=== PATIENT | female | born 1995 | race Caucasian/White ===

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

== ENCOUNTER 2017-03-18 17:17 | Emergency (ER) | payer BC ==
--- NOTE | 2017-03-18 18:33 | EDM.PDOC ---
<Angelia Abdi - Last Filed: 03/18/17 19:04> ED HPI GENERAL MEDICAL PROBLEM - General Chief Complaint: [employer] Problem Stated Complaint: BLEEDING. 2 MTHS PREG Time Seen by Provider: 03/18/17 18:00 Source of Information: Reports: Patient History Limitations: Reports: No Limitations - History of Present Illness INITIAL COMMENTS - FREE TEXT/NARRATIVE: Pt states that she was wiping after urinating and noticed brownish/red blood on the tissue. states that she has tampon in currenlty and unable to quantify bleeding amount. denies pain currently however states that she has n/v constantly due to . No other complaints. Onset: Today, Sudden - Related Data Allergies Allergy/AdvReac Type Severity Reaction Status Date / Time jewelry metal Allergy Rash Uncoded 03/18/17 17:24 scented deodorants Allergy Rash Uncoded 03/18/17 17:24 shabana dish soap AdvReac Rash Uncoded 03/18/17 17:24 Home Meds: Home Meds Pnv No.122/Iron/Folic Acid [ Multi Tablet] 1 each PO DAILY 03/18/17 [ History] Past Medical History Other Neuro History: scoliosis - Past Surgical History HEENT Surgical History: Reports: Tonsillectomy Other HEENT Surgeries/Procedures: unknown if adenoidectomy was also done Social & Family History - Family History Family Medical History: Noncontributory - Tobacco Use Smoking Status *Q: Never Smoker Second Hand Smoke Exposure: No - Caffeine Use Caffeine Use: Reports: None Other Caffeine Use: states rare caffeine use - Recreational Drug Use Recreational Drug Use: No ED ROS GENERAL - Review of Systems Review Of Systems: ROS reveals no pertinent complaints other than HPI. ED EXAM, RENAL/ - Physical Exam Exam: See Below Exam Limited By: No Limitations General Appearance: Alert, WD/WN, No Apparent Distress Respiratory/Chest: No Respiratory Distress, Lungs Clear, Normal Breath Sounds, No Accessory Muscle Use, Chest Non-Tender Cardiovascular: Normal Peripheral Pulses, Regular Rate, Rhythm, No Edema, No Gallop, No JVD, No Murmur, No Rub GI/Abdominal: Normal Bowel Sounds, Soft, Non-Tender, No Organomegaly, No Distention, No Abnormal Bruit, No Mass, Pelvis Stable Course - Vital Signs Last Recorded V/S: Last Vital Signs Temp 97.9 F 03/18/17 21:03 Pulse 99 03/18/17 21:03 Resp 17 03/18/17 21:03 BP 129/87 03/18/17 21:03 Pulse Ox 100 03/18/17 21:03 - Orders/Labs/Meds Labs: Laboratory Tests 03/18/17 03/18/17 03/18/17 Range/Units 17:39 17:39 17:39 WBC 10.0 (5.0-10.0) 10^3/uL RBC 4.13 L (4.2-5.4) 10^6/uL Hgb 12.4 (12.0-16.0) g/dL Hct 36.8 L (37.0-47.0) % MCV 89.1 (80-100) fL MCH 30.0 (27.0-34.0) pg MCHC 33.7 (33.0-35.0) g/dL Plt Count 243 (150-450) 10^3/uL Neut % (Auto) 67.6 (42.2-75.2) % Lymph % (Auto) 23.8 (20.5-50.1) % [place] % (Auto) 7.3 (2-8) % Eos % (Auto) 1.1 (1.0-3.0) % Baso % (Auto) 0.2 (0.0-1.0) % HCG, Quant > 1370 H (0-25) mIU/ml Beta HCG, Quant 884233 mIU/ml Urine Color (YELLOW) Urine Appearance (CLEAR) Urine pH (5.0-9.0) Ur Specific [place] (1.005-1.030) Urine Protein (NEGATIVE) Urine Glucose (UA) (NEGATIVE) Urine Ketones (NEGATIVE) Urine Occult Blood (NEGATIVE) Urine Nitrite (NEGATIVE) Urine Bilirubin (NEGATIVE) Urine Urobilinogen (0.2-1.0) mg/dL Ur Leukocyte Esterase (NEGATIVE) Urine RBC /HPF Urine WBC (0-5/HPF) /HPF Ur Epithelial Cells /HPF Urine Bacteria (0-FEW/HPF) /HPF Urine Mucus /LPF Blood Type A POSITIVE Gel Antibody Screen Negative 03/18/17 Range/Units 18:19 WBC (5.0-10.0) 10^3/uL RBC (4.2-5.4) 10^6/uL Hgb (12.0-16.0) g/dL Hct (37.0-47.0) % MCV (80-100) fL MCH (27.0-34.0) pg MCHC (33.0-35.0) g/dL Plt Count (150-450) 10^3/uL Neut % (Auto) (42.2-75.2) % Lymph % (Auto) (20.5-50.1) % [place] % (Auto) (2-8) % Eos % (Auto) (1.0-3.0) % Baso % (Auto) (0.0-1.0) % HCG, Quant (0-25) mIU/ml Beta HCG, Quant mIU/ml Urine Color Yellow (YELLOW) Urine Appearance Slightly cloudy (CLEAR) Urine pH 5.5 (5.0-9.0) Ur Specific [place] 1.015 (1.005-1.030) Urine Protein Negative (NEGATIVE) Urine Glucose (UA) Negative (NEGATIVE) Urine Ketones Negative (NEGATIVE) Urine Occult Blood Small H (NEGATIVE) Urine Nitrite Negative (NEGATIVE) Urine Bilirubin Negative (NEGATIVE) Urine Urobilinogen 0.2 (0.2-1.0) mg/dL Ur Leukocyte Esterase Negative (NEGATIVE) Urine RBC 0-5 /HPF Urine WBC 0-5 (0-5/HPF) /HPF Ur Epithelial Cells Few /HPF Urine Bacteria Few (0-FEW/HPF) /HPF Urine Mucus Moderate H /LPF Blood Type Gel Antibody Screen Departure - Departure Disposition: Home, Self-Care 01 Clinical Impression: demise, Threatened - Discharge Information Instructions: Miscarriage, [id number] Referrals: Marvin Diego MD [Primary Care Provider] - Forms: ED Department Discharge Additional Instructions: rest No tampons urgent follow up if severe bleeding Clinic in am to see primary Urgent follow up if dizziness or fever <Amy Sloan - Last Filed: 03/19/17 05:36> Course - Radiology Interpretation Free Text/Narrative:: TVUS: No heart tones, single intrauterine 7 weeks, 1 day - Re-Assessments/Exams Free Text/Narrative Re-Assessment/Exam: 03/19/17 05:34 discussed finding of US with patient and absence of FHT and demise. Instructed to follow up with primary care if no passage of tissue or devilops fever or odor to discharge. Departure - Departure Time of Disposition: 20:55 Condition: Undetermined
[2017-03-18 21:04] VITALS: BP 129/87
== END 2017-03-18 21:00 | disposition home or self-care (01) ==
LOC: DL.ED 17:17
DX: O20.0 Threatened abortion (principal); Z91.048 Other nonmedicinal substance allergy status; Z79.899 Other long term (current) drug therapy; Z98.890 Other specified postprocedural states
CPT/HCPCS: 36415; 76815; 76817; 81001; 84702; 85025; 86850; 86900; 86901; 99284

== ENCOUNTER 2023-01-03 22:04 | Inpatient (IN) | payer BC ==
[2023-01-03] MEDS ORDERED: Penicillin G Potassium 5 MILLUNITS in Sodium Chloride 0.9% 100 ML IV ONE (23:02)
[2023-01-03] MEDS ORDERED: Sodium Chloride 0.9% 10 ML Syringe FLUSH PRN (23:45)
[2023-01-03] MEDS ORDERED: Carboprost Tromethamine 250 MCG/1 ML Amp IM PRN (23:45)
[2023-01-03] MEDS ORDERED: Lactated Ringers 1,000 ML IV ONE (23:45)
[2023-01-03] MEDS ORDERED: Ondansetron 4 MG/2 ML SDV IVPUSH PRN (23:45)
[2023-01-03] MEDS ORDERED: Tranexamic Acid 1,000 MG in Sodium Chloride 0.9% 100 ML IV PRN (23:45)
[2023-01-03] MEDS ORDERED: Methylergonovine 0.2 MG/1 ML Amp IM PRN (23:45)
[2023-01-03] MEDS ORDERED: Lidocaine 1% 30 ML SDV INJECT PRN (23:45)
[2023-01-03] MEDS ORDERED: Misoprostol 400 MCG (4 X 100 MCG TAB) RECTAL PRN (23:45)
[2023-01-03] MEDS ORDERED: Acetaminophen 325 MG Tab PO PRN (23:45)
[2023-01-04] MEDS: Oxytocin/Normal Saline 30 UNIT/500 ML BAG IV SCH ×2 (00:08→15:30)
[2023-01-04] MEDS ORDERED: Oxytocin/Normal Saline 30 UNIT/500 ML BAG IV SCH (00:15)
[2023-01-04] MEDS: Penicillin G Potassium 3 MILLUNITS in Sodium Chloride 0.9% 100 ML IV SCH ×4 (03:56→17:28)
[2023-01-04] MEDS: Lactated Ringers 1,000 ML IV SCH ×2 (10:00→19:37)
[2023-01-04] MEDS ORDERED: ePHEDrine 50 MG/ML SDV IVPUSH PRN (10:04)
[2023-01-04] MEDS ORDERED: Phenylephrine HCl In 0.9% NaCl 1 MG/10 ML Syringe IVPUSH PRN (10:04)
[2023-01-04] MEDS ORDERED: Ropivacaine 200 MG in Premix Bag 1 BAG EPIDUR SCH (10:15)
[2023-01-04] MEDS ORDERED: Water For Injection, Sterile 10 ML ONE (11:33)
[2023-01-04] MEDS ORDERED: Water For Injection, Sterile 10 ML SDV INJECT ONE (11:33)
[2023-01-04] MEDS ORDERED: Witch Hazel Medicated Pads 100/Jar TOP PRN (14:27)
[2023-01-04] MEDS ORDERED: Sodium Chloride 0.9% 10 ML Syringe FLUSH PRN (14:27)
[2023-01-04] MEDS ORDERED: Benzocaine/Menthol 20%-0.5% Spray 78 GM Cannister TOP PRN (14:27)
[2023-01-04] MEDS ORDERED: Oxytocin 10 Units/1 ML SDV IM PRN (14:27)
[2023-01-04] MEDS ORDERED: Ibuprofen 800 MG Tab PO PRN (14:27)
[2023-01-04] MEDS ORDERED: Simethicone 80 MG Tab.Chew PO PRN (14:27)
[2023-01-04] MEDS ORDERED: Zolpidem 5 MG Tab PO PRN (14:27)
[2023-01-04] MEDS ORDERED: Docusate Sodium 100 MG Cap PO PRN (14:27)
[2023-01-05] MEDS ORDERED: Penicillin G Potassium 3 MILLUNITS in Sodium Chloride 0.9% 100 ML IV SCH (03:30)
[2023-01-05] MEDS ORDERED: Ferrous Sulfate 325 MG Tab PO SCH (08:00)
[2023-01-05 09:00] VITALS: BP 110/65; PULSE 74
[2023-01-05] MEDS ORDERED: Prenatal Multivitamin with Calcium/Folic Acid/Iron Tab PO SCH (09:00)
== END 2023-01-05 16:15 | disposition home or self-care (01) | DRG 560 ==
LOC: DL.OBCHECK 22:04 → DL.OB 23:45 → MERGE 23:45 → OBSVTOIN 01-04 14:17
PROVIDERS: ADMIT Family Medicine; ATTEND Family Medicine
PROC: 10E0XZZ Delivery of Products of Conception, External Approach (ICD-10-PCS; principal; 2023-01-04)
PROC: 10H07YZ Insertion of Other Device into Products of Conception, Via Natural or Artificial Opening (ICD-10-PCS; 2023-01-04)
PROC: 3E0R3BZ Introduction of Anesthetic Agent into Spinal Canal, Percutaneous Approach (ICD-10-PCS; 2023-01-04)
PROC: 00HU33Z Insertion of Infusion Device into Spinal Canal, Percutaneous Approach (ICD-10-PCS; 2023-01-04)
DX: O99.824 Streptococcus B carrier state complicating childbirth (principal); O70.0 First degree perineal laceration during delivery; D62 Acute posthemorrhagic anemia; O99.02 Anemia complicating childbirth; Z86.16 Personal history of COVID-19; Z3A.39 39 weeks gestation of pregnancy; Z37.0 Single live birth; Z88.8 Allergy status to other drugs, medicaments and biological substances; Z98.890 Other specified postprocedural states
CPT/HCPCS: 36415; 51702; 59409; 84112; 85027; A9270-GY; J2405; J2540; J2590; J3490; J7120